=== PATIENT | female | born 1970 | race Two or more races ===

== ENCOUNTER 2023-04-08 12:23 | Outpatient (CLI) | payer MEDICAID | END 2023-04-08 12:24 | disposition critical access hospital (66) | LOC: EMS 12:23 | DX: R07.89 Other chest pain (principal); R42 Dizziness and giddiness; R20.2 Paresthesia of skin; R45.89 Other symptoms and signs involving emotional state | CPT/HCPCS: A0425; A0429; A0999 ==

== ENCOUNTER 2023-04-08 12:49 | Emergency (ER) | payer MEDICAID ==
[2023-04-08 13:09] VITALS: O2SAT 99
--- NOTE | 2023-04-08 13:28 | ED Physician Documentation ---
PD HPI CHEST PAIN - Stated complaint Stated Complaint: CP - Chief complaint Chief Complaint: Cardiac - History obtained from History obtained from: Patient - Additional information Additional information: Patient is a 52-year-old female with a history of diabetes presenting for evaluation of feeling lightheaded along with chest pressure starting around 1030 today. Patient also reports feeling some numbness over the left cheek. Patiently recently started Victoza for her diabetes and was restarted on metformin a few days ago. She works as a nanny and reports this morning she was sitting down to eat breakfast when she started feeling some numbness in her left cheek and started feeling lightheadedness with standing. Denies vertiginous symptoms. She reports while working with one of the children she felt chest pressure in the middle of her chest. No radiation to the pain. Nothing makes it better or worse. Reports having associated nausea. She drove herself to the walk-in clinic and then was directed to the emergency department for further evaluation. Has reported regular headaches for the last few months. Does not take a blood thinner. Denies head injury or trauma. Headache today is unchanged from other prior episodes and is not worse. Denies exertion at onset of headache. Review of Systems Constitutional: denies: Fever Cardiac: reports: Chest pain / pressure Respiratory: denies: Dyspnea GI: reports: Nausea. denies: Abdominal Pain Musculoskeletal: denies: Extremity swelling Neurologic: reports: Headache PD PAST MEDICAL HISTORY - Past Medical History Past Medical History: Yes Cardiovascular: Hypertension Respiratory: None Neuro: None Endocrine/Autoimmune: Type 2 diabetes GI: None FLIGHT CONTROL SPECIALIST: None : None HEENT: None Psych: None Musculoskeletal: None Derm: None - Past Surgical History Past Surgical History: Yes General: Cholecystectomy, Other /FLIGHT CONTROL SPECIALIST: section, Breast reduction - Present Medications Home Medications: Ambulatory Orders Medication Instructions Recorded Confirmed Liraglutide [Victoza 2-Mina] 0.1 ml IM MAINTENANCE.IV 04/08/23 04/08/23 metFORMIN [Glucophage] 500 mg PO DAILY 04/08/23 - Allergies Allergies/Adverse Reactions: Allergies Allergy/AdvReac Type Severity Reaction Status Date / Time codeine AdvReac Unknown Verified 04/08/23 12:56 Penicillins AdvReac Unknown Verified 04/08/23 12:56 - Social History Does the pt smoke?: No Smoking Status: Never smoker Does the pt drink ETOH?: No Does the pt have substance abuse?: No - Immunizations Immunizations are current?: Yes - POLST Patient has POLST: No PD ED PE NORMAL - General General: Alert and oriented X 3, No acute distress, Well developed/nourished - HEENT HEENT: Atraumatic, PERRL, EOMI, Moist mucous membranes, Pharynx benign - Neck Neck: Supple, no meningeal sign - Cardiac Cardiac: RRR, Strong equal pulses - Respiratory Respiratory: No respiratory distress, Clear bilaterally - Abdomen Abdomen: Soft, Non tender, Non distended - Derm Derm: Warm and dry - Extremities Extremities: No calf tenderness / cord - Neuro Neuro: Alert and oriented X 3, resin filterer 2-12 intact, No motor deficit, Normal speech, Other (Normal gait). No: No sensory deficit (Reports mild paresthesia over left cheek compared to right; Sensation grossly intact elsewhere on the face and on extremities) Results - Vitals Vitals: Vital Signs - 24 hr 04/08/23 04/08/23 04/08/23 12:52 13:05 16:00 Temperature 36.6 C Heart Rate 79 88 Respiratory 19 18 15 Rate Blood Pressure 129/79 148/90 H O2 Saturation 99 99 04/08/23 17:26 Temperature Heart Rate 94 Respiratory 16 Rate Blood Pressure 163/105 H O2 Saturation 99 Oxygen O2 Source Room air - EKG (time done) 1249 EKG releavant findings:: EKG personally interpreted by author of this note. Relevant findings are: Rate 71, normal sinus rhythm, no STEMI, no ST depressions - Labs Labs: Laboratory Tests 04/08/23 04/08/23 04/08/23 13:20 13:20 16:25 WBC 7.8 RBC 4.79 Hgb 13.6 Hct 41.9 MCV 87.5 MCH 28.4 MCHC 32.5 RDW 12.3 Plt Count 288 MPV 11.5 H Neut # (Auto) 4.8 Lymph # (Auto) 2.3 Motley # (Auto) 0.5 Eos # (Auto) 0.2 Baso # (Auto) 0.0 Absolute Nucleated RBC 0.00 Nucleated RBC % 0.0 Sodium 139 Potassium 3.4 L Chloride 105 Carbon Dioxide 25 Anion Gap 9.0 BUN 8 Creatinine 0.4 L Estimated GFR (MDRD) 166 Glucose 124 H Calcium 9.2 Total Bilirubin 0.5 AST 30 ALT 35 Alkaline Phosphatase 97 Troponin I High Sens 2.6 2.3 Total Protein 7.3 Albumin 4.1 Globulin 3.2 Albumin/Globulin Ratio 1.3 Lipase 16 PD Medical Decision Making - ED course Complexity details: reviewed results, re-evaluated patient, d/w patient ED course: Patient is a 52-year-old female presenting for evaluation of chest pain. She does have a history of diabetes. EKG is reviewed and is nonischemic. High- sensitivity troponins are negative x 2 and she has been pain-free here. Patient also reports an area of numbness along her cheek but has no numbness to the lip or elsewhere on the face. Neuroexam is otherwise normal and she has a steady gait. She does report having frequent headaches over the past couple of months so a head CT was obtained. There is no signs of an intracranial hemorrhage. I did review changes noted regarding her white matter and recommendations for outpatient MRI. Potassium was slightly low so was replaced. Patient is feeling better here and is counseled on need for close follow-up with her primary care provider. She is also counseled on concerning symptoms to return for. Departure - Departure Disposition: 01 Home, Self Care Clinical Impression: Chest pain, Numbness and tingling Condition: Stable Instructions: ED Chest Pain Atypical Unkn Cause, ED Paraesthesias Comments: Your testing today does not show signs of heart attack. We did obtain a CT of your head given your ongoing headaches. I do not see signs of bleeding on the CT scan but there are some changes to a portion of your brain called the white matter. I would recommend close follow-up with your primary care provider to discuss whether you may need an MRI for further evaluation of your brain. I would recommend close follow-up with your primary care provider also in regards to your episode of chest pain today as you may need further testing such as a stress test. Please return to the emergency department at any time if you have recurrence of your symptoms or any worsening. Forms: PCP List, Activity restrictions Discharge Date/Time: 04/08/23 17:40
[2023-04-08 13:32] LABS: BASOPHILS % (AUTO) 0.5 %; EOSINOPHILS # (AUTO) 0.2 10^3/uL (0.0-0.7); EOSINOPHILS % (AUTO) 1.9 %; HCT - HEMATOCRIT 41.9 % (37.0-47.0); HGB - HEMOGLOBIN 13.6 g/dL (12.0-16.0); LYMPHOCYTES # (AUTO) 2.3 10^3/uL (1.5-3.5); LYMPHOCYTES % (AUTO) 29.4 %; MEAN CORPUSCULAR HEMOGLOBIN 28.4 pg (27.0-31.0); MEAN CORPUSCULAR HGB CONC 32.5 g/dL (32.0-36.0); MEAN CORPUSCULAR VOLUME 87.5 fL (81.0-99.0); MEAN PLATELET VOLUME 11.5 fL (7.9-10.8); MONOCYTES # (AUTO) 0.5 10^3/uL (0.0-1.0); MONOCYTES % (AUTO) 6.5 %; NEUTROPHILS # (AUTO) 4.8 10^3/uL (1.5-6.6); NEUTROPHILS % (AUTO) 61.6 %; PLT - PLATELET COUNT 288 10^3/uL (130-450); RED BLOOD COUNT 4.79 10^6/uL (4.20-5.40); RED CELL DISTRIBUTION WIDTH 12.3 % (12.0-15.0); WHITE BLOOD COUNT 7.8 x10^3/uL (4.8-10.8)
--- NOTE | 2023-04-08 13:36 | XRAY Report ---
PROCEDURE: Chest 1 View X-Ray INDICATIONS: CP TECHNIQUE: One view of the chest was acquired. COMPARISON: None. FINDINGS: Surgical changes and devices: None. Lungs and pleura: No pleural effusions or pneumothorax. Lungs are clear. Mediastinum: Mediastinal contours appear normal. Heart size is normal. Bones and chest wall: No suspicious bony lesions. Overlying soft tissues appear unremarkable. IMPRESSION: No acute cardiopulmonary process. Reviewed by: Isak Cruz MD on 04/08/2023 1:35 PM [facility] Approved by: Isak Cruz MD on 04/08/2023 1:35 PM [facility] Station ID: [id number]
[2023-04-08 13:41] LABS: ALBUMIN 4.1 g/dL (3.2-5.5); ALBUMIN/GLOBULIN RATIO 1.3 (1.0-2.2); BILIRUBIN,TOTAL 0.5 mg/dL (0.2-1.0); CALCIUM 9.2 mg/dL (8.5-10.3); CREATININE 0.4 mg/dL (0.6-1.3); POTASSIUM 3.4 mmol/L (3.5-4.5); TOTAL PROTEIN 7.3 g/dL (6.4-8.9)
[2023-04-08 13:46] LABS: TROPONIN I HIGH SENSITIVITY 2.6 ng/L (2.3-14.8)
[2023-04-08] MEDS ORDERED: SODIUM CHLORIDE 0.9% 1,000 ML IV STA (14:17)
[2023-04-08] MEDS ORDERED: ACETAMINOPHEN 325 MG TABLET PO STA (14:17)
--- NOTE | 2023-04-08 16:47 | CT Report ---
PROCEDURE: CT brain without contrast INDICATIONS: frequent headaches TECHNIQUE: Helical axial CT of the brain was obtained without contrast and reformatted in multiple p lanes. Radiation dose reduction was achieved using automated exposure control or adjustment of mA and /or kV according to patient size. COMPARISON: None FINDINGS: CSF spaces: Ventricles are appropriate in size and position. No hydrocephalus. Basal cisterns unre markable. Brain: No midline shift. No intracranial masses or hemorrhage. Hess-white matter interface is norm al. 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 Additionally, multifocal hypoattenuation noted in the subcortical white matter, no nspecific. Skull and face: Calvarium and skull base are unremarkable without suspicious lesion. Sinuses: Visualized sinuses and mastoids are clear. IMPRESSION: No intracranial hemorrhage or mass effect. Multifocal subcortical prominent white matter hypoattenuation is nonspecific, but could be further ev aluated with MRI with contrast. Incidental left middle cranial fossa arachnoid cyst Reviewed by: Michael Powers MD on 04/08/2023 3:46 PM [facility] Approved by: Michael Powers MD on 04/08/2023 3:46 PM [facility] Station ID: [id number]
[2023-04-08] MEDS ORDERED: POTASSIUM BICARB 25 MEQ TABLET PO ONE (17:13)
[2023-04-08] MEDS ORDERED: KETOROLAC 15 MG/ML VIAL IVP STA (17:13)
[2023-04-08 17:28] VITALS: BP 163/105
== END 2023-04-08 17:40 | disposition home or self-care (01) ==
LOC: ED 12:49
DX: R07.9 Chest pain, unspecified (principal); R20.2 Paresthesia of skin; R20.0 Anesthesia of skin; I10 Essential (primary) hypertension; E11.9 Type 2 diabetes mellitus without complications
CPT/HCPCS: 36415; 70450; 71045; 80053; 83690; 84484; 85025; 93005; 96374; 99283; 99284; A9270